=== PATIENT | female | born 1990 | race Caucasian/White ===

== ENCOUNTER 2018-10-05 13:42 | Emergency (ER) | payer MEDICAID ==
[~2018-10-05] VITALS: Ht 154.9 cm; Wt 86.6 kg
[2018-10-05 13:50] VITALS: BP 129/74; Ht 154.9 cm; Wt 86.6 kg
== END 2018-10-05 14:52 | disposition home or self-care (01) ==
LOC: ED 13:42
DX: N39.0 Urinary tract infection, site not specified (principal); F17.210 Nicotine dependence, cigarettes, uncomplicated
CPT/HCPCS: 99406